=== PATIENT | female | born 1970 | race Hispanic/Latino ===

== ENCOUNTER 2021-06-13 19:13 | Emergency (ER) | payer OTHER ==
[~2021-06-13] VITALS: Ht 167.6 cm; Wt 108.9 kg
[~2021-06-13 19:13] MED LIST: ULTRAM50 MG PO
[2021-06-13] MEDS ORDERED: IBUPROFEN 600 MG TAB PO STA (19:39)
[2021-06-13] MEDS ORDERED: TRAMADOL HCL 50 MG TAB PO ONE (19:45)
[2021-06-13] MEDS ORDERED: IBUPROFEN 600 MG TAB ONE (19:55)
[2021-06-13] MEDS ORDERED: TRAMADOL HCL 50 MG TAB ONE (19:56)
== END 2021-06-13 22:24 | disposition home or self-care (01) ==
LOC: ER 19:40
DX: S93.402A Sprain of unspecified ligament of left ankle, initial encounter (principal); X50.1XXA Overexertion from prolonged static or awkward postures, initial encounter; Y93.01 Activity, walking, marching and hiking; Z98.84 Bariatric surgery status
CPT/HCPCS: 99283